=== PATIENT | male | born 1950 | race Caucasian/White ===

== ENCOUNTER 2017-02-18 10:30 | Inpatient (IN) | payer BC, MEDICARE ==
[~2017-02-18 10:30] MED LIST: ASPIRIN325 M3 PO; FLOMAX0.4 M1 PO; LIPITOR10 M1 PO; LOTRISONE CREAM15 GM TP; NEURONTIN300 M1 PO; NORVASC10 M2 PO; OMEPRAZOLE20 M3 PO; OXYCODONE HCL5 M1 PO; PERCOCET 5-3251 EACH PO; SINGULAIR10 M1 PO; SPIRONOLACTONE1 EACH PO; TRIAMCINOLONE A60 M1 TP; TYLENOL325 M2 PO; ULTRAM50 M1 PO; VICTOZA 2-0.6 MG/0.1 SC; VITAMIN D-32000 UNI3 PO
[2017-02-18 11:36] LABS: PROTHROMBIN TIME 11.1 SECONDS (9.0-13.6)
[2017-02-19 05:41] LABS: BASO % 0.1 % (0-2); HCT-HEMATOCRIT 42.3 % (36.0-53.5); HGB-HEMOGLOBIN 14.2 gm/dl (13.5-17.0); IMMATURE GRANULOCYTES ABSOLUTE 0.04 tho/cmm (0-0.03); IMMATURE GRANULOCYTES PERCENT 0.2 % (0-0.3); LYMPH ABSOLUTE COUNT 1.5 tho/cmm (0.8-4.5); MCH (MEAN CORPUSCULAR HGB) 29.3 pg (28.0-32.0); MCHC MEAN CORPUSCULAR HGB CONC 33.6 % (32.0-36.0); MCV (MEAN CELL VOLUME) 87.4 fl (82.0-96.0); MEAN PLATELET VOLUME 9.6 cmc (9.4-12.4); MONO % 8.8 % (0-12); MONOCYTE ABSOLUTE COUNT 1.5 tho/cmm (0.0-1.2); NEUTROPHIL ABSOLUTE COUNT 13.5 tho/cmm (1.6-8.0); NEUTROPHIL-AUTOMATED 13.5 tho/cmm (1.6-8.0); NEUTROPHILS % 81.9 % (40-80); PLATELET COUNT 265 tho/cmm (150-450); RED BLOOD COUNT 4.84 mil/cmm (4.40-5.70); WHITE BLOOD COUNT 16.5 tho/cmm (4.0-10.0)
[2017-02-20] MEDS ORDERED: ASPIRIN325 M3 PO (12:53)
[2017-02-20] MEDS ORDERED: ROXICODONE5 M2 PO (12:55)
[2017-02-20] MEDS ORDERED: ULTRAM50 M1 PO (12:57)
== END 2017-02-20 16:40 | DRG 470 ==
LOC: SHSA 10:30 → ORE 13:03 → PACU 15:26 → 5EA 17:10
PROVIDERS: Physician Assistant; ADMIT Orthopaedic Surgery Sports Medicine
PROC: 0SRD0J9 Replacement of Left Knee Joint with Synthetic Substitute, Cemented, Open Approach (ICD-10-PCS; principal; 2017-02-18)
DX: M17.12 Unilateral primary osteoarthritis, left knee (principal); E11.21 Type 2 diabetes mellitus with diabetic nephropathy; E11.42 Type 2 diabetes mellitus with diabetic polyneuropathy; Z68.41 Body mass index [BMI] 40.0-44.9, adult; K90.0 Celiac disease; K21.9 Gastro-esophageal reflux disease without esophagitis; I10 Essential (primary) hypertension; E66.01 Morbid (severe) obesity due to excess calories; Z79.82 Long term (current) use of aspirin; G47.30 Sleep apnea, unspecified; H91.93 Unspecified hearing loss, bilateral; M48.06 Spinal stenosis, lumbar region; M47.9 Spondylosis, unspecified
CPT/HCPCS: C1713; C1776; G0009; J0171; J0690; J1815; J1885; J2270; J2795